=== PATIENT | female | born 1940 | race Caucasian/White ===

== ENCOUNTER → 2022-10-22 09:16 | Outpatient (CLI) | payer MEDICARE, SELFPAY ==
--- NOTE | 2022-10-22 | DI.ECHO.S_ITS ---
[facility]---------+ [facility] +---------+ : : [address] : : : : [id number] : : : : Phone: [phone]---------+ Echocardiogram Report + + :Name: EKTA ESPINOZA Study Date: 10/22/2022 Height: 66 in : :[facility] ReadingLocation: Weight: 155 lb : : Gender: Female BSA: 1.8 m2 : :: 1940 Age: 82 yrs BP: 114/70 mmHg: :Reason For Study: CHEST PAIN HR: 62 : :Ordering Physician: JEREMI, : :POP Performed By: LEOBARDO JOSEPH : :Referring: POP BLOOD : + + Interpretation Summary The left ventricle is normal in size and wall thickness. The ejection fraction is estimated to be 60-65%. The right ventricle is normal size. The right ventricular systolic function is normal. There is mild mitral regurgitation. There is mild aortic regurgitation. There is mild tricuspid regurgitation. The right ventricular systolic pressure is estimated to be at least 28 mmHg based on an estimated right atrial pressure of 3 mm Hg. Procedure: A two-dimensional transthoracic echocardiogram with color flow and Doppler was performed. The study quality was technically adequate. There is no prior echocardiogram noted for this patient. The patient was in normal sinus rhythm during the exam. Left Ventricle: The left ventricle is normal in size and wall thickness. There is no thrombus. A false chord is noted (normal variant). Left ventricular systolic function is normal. The ejection fraction is estimated to be 60-65%. There are no focal wall motion abnormalities. MV E/A: 1.1 Med Peak E' Jin: 7.4 cm/sec E/E' med: 15.3. Right Ventricle: The right ventricle is normal size. The right ventricular systolic function is normal. Atria: Both atria are normal in size. There is no Doppler evidence for an interatrial shunt. Mitral Valve: There is mild mitral annular calcification. There is mild mitral regurgitation. Aortic Valve: The aortic valve is trileaflet. The aortic valve opens well. There is no aortic valve stenosis. There is mild aortic regurgitation. Tricuspid Valve: The tricuspid valve is normal. There is mild tricuspid regurgitation. The right ventricular systolic pressure is estimated to be at least 28 mmHg based on an estimated right atrial pressure of 3 mm Hg. Pulmonic Valve: The pulmonic valve is not well visualized. There is no pulmonic valvular regurgitation. Great Vessels: The aortic root is normal size. The ascending aorta is normal in size. The IVC is of normal diameter and collapses greater than 50% with a sniff. This suggests a low right atrial pressure of 3 mm Hg. Pericardium/ Pleura There is an anterior echo-free space consistent with a fat pad. There is no pericardial effusion. There is no pleural effusion. MMode/2D Measurements & Calculations LVIDd: 4.3 cm LVOT diam: 1.9 cm LVIDs: 2.7 cm Ao root diam: 3.2 cm FS: 37.6 % IVSd: 0.75 cm LVPWd: 0.84 cm LV godinez. diameter/BSA (cm/m^2): 2.4 LV sys. diameter/BSA (cm/m^2): 1.5 LA A2 area: 12.6 cm2 RA long axis: 4.2 cm LA A4 area: 14.7 cm2 RA area: 12.4 cm2 LA length (vol): 4.3 cm RA vol: 31.2 ml LA vol: 37.0 ml RA : 17.4 ml/m2 LA vol index: 20.6 ml/m2 TAPSE: 2.1 cm Doppler Measurements & Calculations Ao V2 max: 143.7 cm/sec LVOT Max Jin: 140.8 cm/sec Ao V2 mean: 93.7 cm/sec LV V1 max P.9 mmHg Ao max P.3 mmHg LV V1 VTI: 32.8 cm Ao mean P.9 mmHg TRACEY(I,D): 2.8 cm2 Ao V2 VTI: 32.4 cm TRACEY(V,D): 2.7 cm2 sev ratio: 1.0 TRACEY indexed to BSA (cm^2/m^2): 1.5 AI P1/2t: 493.7 msec AI dec slope: 278.1 cm/sec2 MV E max jin: 112.7 cm/sec TR max jin: 251.8 cm/sec MV A max jin: 105.9 cm/sec TR max P.4 mmHg MV E/A: 1.1 PA V2 max: 67.8 cm/sec Med Peak E' Jin: 7.4 cm/sec PA V2 mean: 52.7 cm/sec E/E' med: 15.3 PA mean P.2 mmHg Lat Peak E' Jin: 5.7 cm/sec PA pr(Accel): 19.1 mmHg E/E' lat: 19.9 E/e' average: 17.6 MV dec time: 0.21 sec SV(LVOT): 90.1 ml Reading Physician:04:06 PM
== END ==
PROVIDERS: PCP Physician Assistant Medical; Referring Provider Physician Assistant Medical; Visit Provider Physician Assistant Medical
DX: R07.9 Chest pain, unspecified (principal); I08.3 Combined rheumatic disorders of mitral, aortic and tricuspid valves
CPT/HCPCS: 93306

== ENCOUNTER → 2022-10-27 10:56 | Outpatient (CLI) | payer MEDICARE, SELFPAY ==
--- NOTE | 2022-10-27 | DI.US.S_ITS ---
PROCEDURE: US ABD AORTA ANEURYSM SCREEN INDICATIONS: chest pain TECHNIQUE: Real time scanning was performed of the aorta and iliac arteries, with image documentation. COMPARISON: None. FINDINGS: Aorta: Proximal aortic diameter measures 2.1 cm. Mid-aorta measures 1.8 cm. Distal aortic diameter is 1.7 cm. Iliac arteries: Right common iliac artery measures 0.9 cm. Left common iliac artery measures 0.9 cm. IMPRESSION: Unremarkable abdominal aortic ultrasound without evidence of aneurysm Approved by: Reagan Darby M.D. on 10/27/2022 at 15:59
== END ==
PROVIDERS: PCP Physician Assistant Medical; Referring Provider Physician Assistant Medical; Visit Provider Physician Assistant Medical
DX: Z13.6 Encounter for screening for cardiovascular disorders; R07.9 Chest pain, unspecified
CPT/HCPCS: 76706

== ENCOUNTER → 2022-11-05 10:41 | Outpatient (CLI) | payer MEDICARE, SELFPAY ==
--- NOTE | 2022-11-05 20:54 | DI.NM.S_ITS ---
DATE OF SERVICE: 11/05/2022 PROCEDURE: Pharmacological perfusion study. INDICATIONS: Chest pain, shortness of breath, hyperlipidemia. RADIOPHARMACEUTICAL: 23.9 millicurie technetium-99m Myoview IV was injected at stress and 10.0 millicurie technetium-99m Myoview IV was injected at rest. CARDIAC STRESS: The patient underwent IV Lexiscan perfusion study under the supervision of an attending staff as per standard protocol. The patient remained hemodynamically stable. Resting blood pressure 120/70. Baseline rhythm sinus. During stress, no convincing ischemic changes seen. Some isolated PVCs seen. No complex arrhythmias. No chest pain. Had minimal dyspnea. RAW DATA: There is some breast shadow seen. Increased subdiaphragmatic activity. GATED STUDY: Resting LV ejection fraction 76% and stress LV ejection 97% without any obvious wall motion abnormalities. Resting end-diastolic volume 83 mL. TID ratio 0.64, which is within normal limits. Lung/heart ratio 0.26, which is within normal limits. MYOCARDIAL PERFUSION SCAN: Stress supine, resting supine and stress prone images were compared to each other. There is apical thinning. Otherwise, normal myocardial perfusion. No obvious ischemia or infarction pattern seen. Summed stress score is zero. CONCLUSION: I will call this study likely a normal myocardial perfusion study with some apical thinning. No convincing ischemia or infarction. Summed stress score zero. Resting left ventricular ejection fraction 76% and stress LV ejection fraction hyperdynamic 97%. No convincing ischemic EKG changes seen. Overall, low-risk myocardial perfusion scan. Jyothi Olivas - GLENYS/juan carlos/[facility] doc#: [id number]/job#: [id number] dd: 11/05/2022 17:04:00 dt: 11/05/2022 20:45:00 DICTATING MD/COPIES TO: Joseph Barrera MD COPIES MNE: LAMINE;
== END ==
PROVIDERS: PCP Physician Assistant Medical; Referring Provider Physician Assistant Medical; Visit Provider Physician Assistant Medical
DX: R07.9 Chest pain, unspecified (principal); R06.02 Shortness of breath; E78.5 Hyperlipidemia, unspecified
CPT/HCPCS: 78452; 93017; A9502; J2785

== ENCOUNTER → 2024-03-24 11:25 | Outpatient (CLI) | payer MEDICARE, SELFPAY ==
--- NOTE | 2024-03-24 11:27 | DI.CT.S_ITS ---
PROCEDURE: CT LUMBAR SPINE WO CON INDICATIONS: SPONDYLOLISTHESIS,LUMBAR REGION TECHNIQUE: Noncontrast 3 mm thick sections acquired from the T12 level to the sacrum. Sagittal and coronal reformats were constructed. For radiation dose reduction, the following was used: automated exposure control. COMPARISON: Outside Facility, RG, XR L-SPINE 2-3V, 12/15/2023, 12:08. Outside Facility, RG, MRI L-SPINE W/O CONTRAST, 12/24/2023, 15:59. FINDINGS: Image quality: Excellent. Bones: There is 8 mm grade 1 anterolisthesis of L4 on L5. No acute vertebral body compression fractures. No suspicious lytic or blastic bony lesions. No pars defects. T12-L1: No significant spinal canal stenosis or neural foraminal narrowing. L1-L2: Loss of disc space height with degenerative endplate changes and posterior disc-osteophyte complex as well as mild bilateral facet hypertrophy. Findings result in fhww-ua-urrrqtux narrowing of the spinal canal and mild to moderate narrowing of the bilateral neural foramina. L2-L3: Disc desiccation and loss of disc space height with circumferential disc bulging and moderate bilateral facet hypertrophy as well as buckling of the ligamentum flavum. Findings result in tqji-ct-dyzlmbxd narrowing of the spinal canal and mild bilateral neural foraminal narrowing. L3-L4: Loss of disc space height with circumferential disc bulging and moderate bilateral facet hypertrophy. Findings result in moderate narrowing of the spinal canal with moderate to severe left and moderate right neural foraminal narrowing. L4-L5: Grade 1 anterolisthesis with uncovering of the disc space and superimposed disc bulging as well as severe bilateral facet hypertrophy and buckling of the ligamentum flavum. Findings result in severe narrowing of the spinal canal and moderate to severe bilateral neural foraminal narrowing. L5-S1: Loss of disc space height with circumferential disc bulging and hcrv-sz-boipiauz bilateral facet hypertrophy. Findings result in moderate to severe narrowing of the bilateral neural foramina without significant spinal canal stenosis. Soft tissues: No retroperitoneal masses or hematomas. Visualized aorta is normal in caliber. Mild reticulations in the included lung bases. Soft tissue density partially visualized in the included left breast is likely a breast implant. IMPRESSION: 1. At L4-5, anterolisthesis and superimposed degenerative changes result in severe narrowing of the spinal canal as well as moderate to severe bilateral neural foraminal narrowing. 2. Additional multilevel degenerative disc disease and facet hypertrophy as described in detail in the body report. Findings do not appear significantly changed when compared to the MRI from 12/24/2023. Approved by: Frederic Mayo M.D. on 03/24/2024 at 14:15
== END ==
PROVIDERS: PCP Physician Assistant Medical; Referring Provider Physician Assistant; Visit Provider Physician Assistant
DX: M43.16 Spondylolisthesis, lumbar region (principal); M47.816 Spondylosis without myelopathy or radiculopathy, lumbar region; M47.817 Spondylosis without myelopathy or radiculopathy, lumbosacral region; M48.061 Spinal stenosis, lumbar region without neurogenic claudication; M48.07 Spinal stenosis, lumbosacral region; M51.36 Other intervertebral disc degeneration, lumbar region; M51.37 Other intervertebral disc degeneration, lumbosacral region
CPT/HCPCS: 72131

== ENCOUNTER 2024-03-28 11:48 | Inpatient (IN) | payer MEDICARE, SELFPAY ==
[2024-03-22 13:55] VITALS: BMI 26.6
[2024-03-28] VITALS (14 sets, daily range): BP systolic 155–201; BP diastolic 76–103; PULSE 71–90; RESP 12–20; TEMP 36–36.6; O2SAT 91–99; BMI 26.6
[2024-03-28] MEDS: LACTATED RINGERS 1,000 ML 42 ML IV ×2 (12:29→15:46)
--- NOTE | 2024-03-28 12:58 | PM.PREOP ---
Pre-operative Note Interval Note History & Physical reviewed/Exam performed by Physician: Yes Changes to H&P: No
[2024-03-28] MEDS: CEFAZOLIN 2 GM/100 ML PREMIX 100 ML IV ×2 (13:50→22:02)
--- NOTE | 2024-03-28 14:10 | SUR.OPER ---
Prone on spine table, head in foam head support, padded chest and pelvic supports, gel pad at knees, lower legs supported by pillows; nipples, genitalia and toes free of pressure, arms secured on foam padded arm boards at <90 degrees abduction. Tape over blanket at thigh secured to table.
[2024-03-28] MEDS: BUPIVACAINE LIPOSOME 266 MG/20 ML VIAL INJ (14:15)
[2024-03-28] MEDS: BUPIVACAINE 0.25% (PF) 60 ML, EPINEPHrine 0.15 MG INJ (14:15)
--- NOTE | 2024-03-28 16:04 | DI.RAD.S_ITS ---
PROCEDURE: XR LUMBAR SPINE 2V INDICATIONS: L4-5 TLIF TECHNIQUE: 2 views of the lumbar spine were acquired. COMPARISON: None. FINDINGS / IMPRESSION: Frontal and lateral fluoroscopic spot images are submitted. Postoperative changes with pedicle screws, posterior fixation rods, intervertebral metallic cage status post L4-5 TLIF are noted. Fluoroscopic dose values are not delineated. Dictated by: Ronn Vigil M.D. on 03/28/2024 at 16:52 Approved by: Ronn Vigil M.D. on 03/28/2024 at 16:54
--- NOTE | 2024-03-28 16:21 | PM.OP.1 ---
Operative Date/Time/Diagnoses Date of procedure: 03/28/24 Time of procedure: 14:00 Pre-op diagnosis: 1. L4-5 spondylolisthesis 2. L3-4, L4-5 spinal stenosis with neurogenic claudication Post-op diagnosis: same Procedure & Clinicians Procedure: 1. L4-5 Postero-lateral and posterior interbody fusion 2. L4-5 interbody cage placement. 3. L4-5 decompressive laminectomy with bilateral facetecomies 4. L4-5 Posterior non-segmental instrumentation 5. L3-4 hemilaminectomy 6. Stearns of bone marrow from iliac crest 7. Utilization of microsurgical technique and operating microscope Same procedure as scheduled: Yes Indications: Patient has been having chronic back pain and worsening lumbar radiculopathy and symptoms of neurogenic claudication. She has L4-5 spondylolisthesis along with spinal stenosis at L3-4 and L4-5 correlating with her symptoms. Patient failed multiple conservative management with worsening pain weakness and numbness in her lower extremity. Patient has been having difficulty performing activity of daily living. After discussing risks benefits of treatment options, patient elected proceed with surgery. Surgeon: Martir Vanegas Band Attacher: Amalia Gorman Click Yes if Unassisted: No Anesthesia Type: General Operative Notes Closure Type: primary Prosthetic devices, grafts, tissues, transplants, or devices: Globus CREO MIS screws, Rise cage Estimated Blood Loss (mL): 100 Blood products transfused: none Procedure in detail: Patient was seen in the preoperative area. Risks and benefits of the surgery was discussed with the patient. Informed consent was obtained from the patient and placed in the chart. Surgical site was marked. Patient was taken to the operative room. General anesthesia was administered. Prophylactic antibiotic was given to the patient less than 30 min before the incision was made. Patient was placed into a prone position on the Marciano table. Patient's back was then prepped and draped in the sterile fashion. Time-out was performed at this time. After patient was prepped and draped, patient's PSIS was palpated and marked bilaterally. Small 1 cm incision was made over the PSIS for placement of the reference probes. Two trocar was placed into the PSIS 1 on each side. The reference probe was attached to the trocar of the reference apparatus. At this time the C-arm imaging was used to confirm AP and lateral of L4-5 vertebrae and merged the C-arm imaging using the [employer] robotic navigation system with the CT of the lumbar spine. After successful merging was completed and confirmed, skin marker was used to tiffany out the skin incision using the [employer] robotic arm. Bilateral incision was made at this time. Pre templated trajectory was used and guided using the [employer] robotic navigation system for bilateral L4-5 pedicle screw placement. This was done by using the robotic arm to guide the high-speed bur to make a cortical entry point. Next a drill was placed also using the robotic arm and guided using the navigation system drilling partially through bilateral L4 and L5 pedicles. Next L4-5 pedicle screws it was pre templated and measured was placed onto the power lyft driver and inserted into the pedicles bilaterally. After all 4 screws were placed C-arm imaging was taken of both AP and lateral to confirm the placement. Excellent placement of the screws were confirmed and a matched precisely with the pre planned screw placement using the navigation system. MARs retractor was inserted using [employer] guidence. [employer] MARS retractors was placed inside the incision and docked onto the L4 lamina. Using microsurgical technique and operating microscope, a L4 laminectomy and L4-5 facetectomy was performed using a Kerrison rongeur. Patient was found have severe central stenosis, lateral recess and neural foramen stenosis which was fully decompressed after the laminectomy facetectomy. More than 75% of the facets were removed during the process of decompression rendering L4-5 level grossly unstable and required a fusion procedure at the same time. The disc space at L4-5 was identified, and a total diskectomy was performed at L4-5 level. The endplates were decorticated using a rasp and shaver. The total diskectomy and decortication was performed at L4-5 level in order to to accomplish a L4-5 fusion. The local bone from the laminectomy and facetectomy was saved for local bone grafting. After the total diskectomy and decortication was completed, Viacel bone graft material was combined with local bone that was harvested earlier. At this time, a separate skin is incision was made over the iliac crest. A Jamshidi needle was inserted into the iliac crest through a separate skin incision. 5 cc of bone marrow aspiration was obtained through the separate skin incision using a Jamshidi needle from the iliac crest. The bone marrow aspiration was combined with local bone and the Viacel bone grafting material. The bone grafting material was placed into the L4-5 interbody space along with a expandable cage. The cage was expanded to its maximum height using the torque limiting screwdriver. The disc preparation as well as the cage insertion were also performed under navigation guidance. After the cage was placed, AP and lateral C-arm imaging was taken to confirm placement of the cage and excellent position was confirmed. Globus MARs retractor was redirected over the L3-4 interval. Using microsurgical technique and operating microscope, a L3-4 hemilaminectomy was performed using a Kerrison rongeur to further decompress the central canal and lateral recess at L3-4 level. Globus MARS retractor was inserted and docked onto the L4-5 posterolateral gutter on the right side. Using the power drill, posterior-lateral decortication was performed at L4-5 level until bleeding cortical bone was identified. The remaining bone grafting material was placed into the L4-5 posterior lateral gutter he order to accomplish posterolateral fusion at the L4-5 level. At this time the tulips were attached to the L4-5 pedicle screw shanks. After measuring the length of the rods, they were inserted into the tulips of the pedicle screws and locked in place using locking caps and torque limiting screwdriver bilaterally. Total 4 caps and 2 titanium rods was used in order to complete the posterior instrumentation construct. After all the hardware was placed, and confirmed with AP and lateral C-arm imaging, the wound was then irrigated with sterile normal saline and packed with Ray-Antonio gauze for 3 min to accomplish hemostasis. After the gauze was removed the deep fascia was closed with #1 Vicryl suture. The subcutaneous layer was closed with 2-0 Vicryl. The skin was closed with skin alondra. Patient tolerated the procedure well. There were no complications. Neuro monitoring system was used to monitor patient's neurologic status throughout entire procedure. There was no disturbance of the neural monitoring signals throughout the case. The Operation could not have been safely performed without compromising the technical result or length of the procedure, without the assistance of a skilled surgical asst. The surgical asst was medically necessary for proper positioning, retraction and manipulation of instruments, proper exposure, surgical preparation, and manipulation of tissue. Complications: none Post-operative Condition: stable Disposition: PACU Plan for aftercare: Admit to inpatient hospital
--- NOTE | 2024-03-28 16:26 | SUR.PHASEI ---
pt has small skin tear to right side of cheek. I let Dali Wiley CRNA see it and she assessed the area.
--- NOTE | 2024-03-28 16:43 | SUR.PHASEI ---
Report given to Mallory CHAMBERS
[2024-03-28] MEDS: ACETAMINOPHEN IV 1,000 MG/100 ML VIAL 400 MG IV (16:53)
--- NOTE | 2024-03-28 18:33 | PC.NURSE ---
Patient admitted to room from pacu around 1725. She is sleepy but easily wakes up. She has not needed pain medication yet for her back discomfort. Patient was hypertensive in pacu and it went down. She is running 170s Systolic at this time. We will continue to monitor and notify . Patient is sleeping at this time.
[2024-03-28] MEDS: DOCUSATE 100 MG CAPSULE PO (20:10)
[2024-03-28] MEDS: CYCLOBENZAPRINE 10 MG TABLET 5 MG PO (20:10)
[2024-03-28] MEDS: SENNOSIDES 8.6 MG TABLET 17.2 MG PO (20:10)
[2024-03-28] MEDS: OXYCODONE IR 10 MG TABLET PO (20:10)
[2024-03-28] MEDS: HYDROMORPHONE 0.5 MG INJ IV (22:08)
[2024-03-29] VITALS (7 sets, daily range): BP systolic 106–175; BP diastolic 52–83; PULSE 64–93; RESP 12–24; TEMP 36.1–36.6; O2SAT 91–97
[2024-03-29] MEDS: LACTATED RINGERS 1,000 ML 125 ML IV (01:09)
[2024-03-29] MEDS: OXYCODONE IR 10 MG TABLET PO ×4 (01:21→22:42)
[2024-03-29] MEDS: HYDROMORPHONE 0.5 MG INJ IV ×3 (03:00→23:28)
[2024-03-29] MEDS: ONDANSETRON 4 MG/2 ML INJ IV ×2 (03:00→08:17)
[2024-03-29] MEDS: PANTOPRAZOLE DR 20 MG TABLET PO (06:14)
[2024-03-29] MEDS: LEVOTHYROXINE 75 MCG TABLET PO (06:14)
[2024-03-29] MEDS: CYCLOBENZAPRINE 10 MG TABLET 5 MG PO ×2 (08:15→18:44)
[2024-03-29] MEDS: GABAPENTIN 600 MG TABLET PO ×3 (08:15→18:43)
[2024-03-29] MEDS: DOCUSATE 100 MG CAPSULE PO ×2 (08:16→20:41)
[2024-03-29] MEDS: ESCITALOPRAM 10 MG TABLET 20 MG PO (08:16)
[2024-03-29] MEDS: CEFAZOLIN 2 GM/100 ML PREMIX 100 ML IV (08:17)
[2024-03-29] MEDS: SODIUM CHLORIDE 0.9% FLUSH 10 ML IV ×2 (08:18→20:42)
[2024-03-29] MEDS: ACETAMINOPHEN 325 MG TABLET 650 MG PO ×2 (08:19→18:43)
--- NOTE | 2024-03-29 09:50 | PT.IIE ---
Current Diagnoses Spondylolisthesis, lumbar region (03/28/24) Spinal stenosis, lumbar region with neurogenic claudication (03/28/24) Surgery Performed Operation Date: 03/28/24 13:45 Actual Procedures p L4-5 TLIF, L3-4 Hemilaminectomy - Robot - Martir Vanegas MD Surgical History (Last Reviewed 03/28/24 @ 12:25 by Gracie Garcia, RN) History of cataract removal with insertion of prosthetic lens History of D&C History of left knee replacement Status post appendectomy Status post arthroscopy Status post breast lumpectomy Status post surgery (04/04/16) Status post tonsillectomy and adenoidectomy Medical History (Last Reviewed 03/28/24 @ 12:25 by Gracie Garcia, RN) Ankle fracture Depression History of high cholesterol History of left breast cancer Hypothyroid Limb alert care status Sciatica Physical Therapy Inpatient Evaluation/Re-Eval M1 PT/OT-IP Prior Functional Status Start: 03/29/24 14:13 Freq: NEEDED Status: Active Protocol: Document 03/29/24 09:50 AB (Rec: 03/29/24 14:28 AB [id number]) Medical Review Prior Functional Status Medical History Reviewed Yes Communication pt is very sleepy; sister-in- law in room and provided pt's PLOF and home set up Mobility and Gait [id number] stated that pt was independent with all mobilities and ambulation without AD Social History Household Members none Living Arrangements House Number of Floors (Floors) Two Floors Number of Stairs To Enter/Railing? pt can stay on main level of the house: has 2 steps without rails down to living room but does not need to go down there has 2 steps to enter with bilateral wide rails and can only hold on to one rail at a time Home Environment Standard Height Toilet,Walk in Shower Home Equipment Front Wheel Walker,Straight Cane,Raised Toilet Seat w/ Armrests,Shower Seat without Backrest,Hand Held Shower,Grab Bars In Shower Additional Social History Comment pt has R side bed rail M2 PT-IP Current Condition Start: 03/29/24 14:13 Freq: NEEDED Status: Active Protocol: Document 03/29/24 09:50 AB (Rec: 03/29/24 14:28 AB [id number]) Physical Therapy Current Condition Current Condition Evaluation Date 03/29/24 Treatment Diagnosis s/p L4-5 TLIF, L3-4 hemilami; difficulty in walking Onset Date 03/28/24 M3 PT-IP Subjective Start: 03/29/24 14:13 Freq: NEEDED Status: Active Protocol: Document 03/29/24 09:50 AB (Rec: 03/29/24 14:28 AB [id number]) Subjective Physical Therapy Visit Type Type Initial Evaluation Visit Start Time 09:50 Visit Stop Time 10:45 Number of FOUNDRY MOLDER Visits 0 Physical Therapy Visit Comments Patient Comments agreeable to do PT Therapy Pain Assessment Pain When Pain Assessed During Mobility Pain Present Pain Present Pain Reported Location back Scale Used pain scale not stated M4 PT-IP Mobility and Gait Start: 03/29/24 14:13 Freq: NEEDED Status: Active Protocol: Document 03/29/24 09:50 AB (Rec: 03/29/24 14:28 AB [id number]) PT-Bed Mobility Assessment Rolling Type of Rolling Log Rolling Level of Assist Maximal Assistance Supine to Sit Supine to Sit Maximum Assistance,1 Person Assistance,Bedrails Scooting Scooting to Edge of Bed Maximum Assistance PT-Transfer Assessment Sit to and From Stand Sit to and from Stand Maximum Assistance,1 Person Assistance Equipment Transfer Assistive Device Gait Belt,Front Wheeled Walker Orthotic/Prosthetic Devices or Brace: No Transfers Transfer Destination Chair Transfer Technique ambulated Transfer Ability Level of Assist Maximum Assistance,1 Person Assistance,Use of Upper Extremities Comments Mobility Comments pt supine in bed and asleep. [id number] in room and provided pt's PLOF and home set up. woke pt up and agreed to do PT but requires max cues to stay awake. educated pt regarding back precautions and log roll. provided pt with post-op folder. BP supine: 104/55. completed supine to sit log roll max A and max cues. pt sat on EOB. mod A for sitting balance with increase posterior trunk lean requiring assist and max cues. completed sit to stand from EOB max A and max cues. Required 2 attempts to stand. pt ambulated to the chair using FWW mod to max A and max cues. pt agreed to sit up on the chair. positioned pt on the chair. call light and table placed within reach. informed pt and JED regarding SNF rehab and agreed. JED stated that she will only stay with pt for a few days and has to go back home due to work. also stated that it seems pt is requiring too much assistance right now and more than she can provide. Gait Assessment Gait Gait Assistance Required: Moderate Assistance,Maximum Assistance Distance (Feet) 12 Able to Maintain Weight Bearing Status Yes During Gait Assistive Devices Assistive Device Gait Belt,Front Wheeled Walker Orthotic/Prosthetic Devices or Brace: No Gait Deviations General Gait Pattern Ataxic,Decreased Stride Length ,Decreased Feet Clearance Factors Limiting Gait Function Factors Limiting Gait Function Decreased Activity Tolerance, Decreased Strength,Difficulty Following Directions,Limited Range of Motion,Pain,Poor Balance,Poor Safety Awareness PT-Balance Assessment Sitting Balance and Reactions Static Sitting Balance Ability Fair Dynamic Sitting Balance Ability Poor Standing Balance and Reactions Static Standing Balance Ability Poor Dynamic Standing Balance Ability Poor Device Used FWW M5 PT-IP Objective Assessments Start: 03/29/24 14:13 Freq: NEEDED Status: Active Protocol: Document 03/29/24 09:50 AB (Rec: 03/29/24 14:28 AB [id number]) Orientation Orientation/Cognition Level of Alertness Confusional State Orientation Name,Situation Language Function Ability Hard of Hearing Safety Awareness Decreased Safety Awareness Memory Description Short Term Impaired Gross Range of Motion Lower Extremity ROM Assessment Within Functional Limits Strength Lower Extremity Strength Assessment Bilaterally Impaired Hip 3-/5 Knee 3+/5 Sensation Assessment Sensation Gross Sensation WNL Muscle Tone Muscle Tone WNL Yes M6 PT-IP Treatment Start: 03/29/24 14:13 Freq: NEEDED Status: Active Protocol: Document 03/29/24 09:50 AB (Rec: 03/29/24 14:28 AB [id number]) Physical Therapy Treatment Education Education Provided Precautions,Weight Bearing Status,Post-Op Packet,Safety M7 PT-IP Assessment and Plan Start: 03/29/24 14:13 Freq: NEEDED Status: Active Protocol: Document 03/29/24 09:50 AB (Rec: 03/29/24 14:28 AB [id number]) PT Summary Assessment and Plan Potential Rehabilitation Potential Fair Status of Condition at Evaluation Evolving Summary Impairments Pain,ROM,Strength,Balance, Coordination,Sensation,Tone, Cognition,Bed Mobility, Transfers,Gait,Activity Tolerance Assessment Summary pt is an 83 y/o F s/p L4-5 TLIF, L3-4 hemilaminectomy POD 1. pt has back precautions. pt requiring max A and max cues with all mobilities at this time and will require SNF rehab to improve overall mobility and strength. pt's lnrphm-[id number]-oad plans to stay and assist pt but only for a few days. will continue to assess progress. Goals Bed Mobility Goal Minimal Assistance Transfer Goal Minimal Assistance,Front Wheeled Walker Gait Goal Minimal Assistance,Front Wheel Walker Gait Distance 100 Other Goals up/down 2 steps 1 rail SBA Days to Meet Goals 5 Frequency of Treatment Frequency Of Treatment Twice a Day Treatment Plan Physical Therapy Treatment Plan Bed Mobility Training,Transfer Training,Gait Training, Therapeutic Exercise,Balance Retraining,Post Op Education, Discharge Planning,Hot or Cold Pack,Neuromuscular Re-ed, Coordination Retraining,Manual Therapy Precautions Lumbar Precautions Log Roll,No Twisting,Limit Bending,Lifting Restriction of 10 lbs,Gait Belt above Incisional Area Recommendations To Nursing Amount of Assist Needed 1 Person Assist Discharge Recommendations PT Discharge Recommendations SNF Rehab Transportation Needs at Discharge Wheelchair/Cabulance
--- NOTE | 2024-03-29 10:41 | P.PN_ITS ---
Subjective Subjective Date Patient Seen: 03/29/24 Time Patient Seen: 07:15 Interval history: Patient states she is having difficulty with pain control. He has been taking more medications with little relief. She has been able to get up with physical therapy and ambulate with assistance to the restroom. She is able to urinate on her own. Denies any new numbness or tingling to lower extremities. She has had episodes of nausea and vomiting. Exam Vital Signs (past 8 hours): - 03/29/24 05:00 03/29/24 08:33 Temperature 97.8 F 96.9 F L Pulse Rate 64 89 Respiratory Rate 12 19 Blood Pressure 134/69 175/83 H Pulse Oximetry 93 97 Oxygen Flow Rate 1 0 Fraction of Inspired Oxygen 28 SaO2/FiO2 Ratio 335 Oxygen Delivery Method Nasal Cannula Oxygen Flow Rate 0 Narrative Exam Narrative: Patient found lying in bed on her right side. General pain is localized along the surgical site. Sensation intact to light touch throughout the lower extremities. Blood staining the left side bandage. 5/5 PF, DF, EHL on bilateral lower extremities. Sensation to light touch intact throughout BLE, calves soft and compressible. SCDs on and working Resp Effort & Inspection: normal respiratory effort and able to speak in complete sentences [facility] Medical History Limb alert care status History of high cholesterol History of left breast cancer Sciatica Depression Hypothyroid Ankle fracture Surgical History History of D&C History of left knee replacement Status post surgery (04/04/16) History of cataract removal with insertion of prosthetic lens Status post arthroscopy Status post breast lumpectomy Status post appendectomy Status post tonsillectomy and adenoidectomy Social History household members: none Smoking Status: Former smoker alcohol intake: current Assessment & Plan Post-op Postoperative Procedures: Procedures Operation Date: 03/28/24 13:45 Actual Procedure Side Surgeon p L4-5 TLIF, L3-4 Hemilaminectomy - Robot Martir Vanegas MD Postoperative day: 1 Postoperative status: marginal pain control Postoperative plan: routine post-op care Postoperative plan narrative: Change dressing Multimodal pain control. Ambulate with physical therapy. SCDs on when at rest. Re-evaluate tomorrow for possible discharge to home. Quality VTE Deep Vein Thrombosis/Pulmonary Embolism Present on Admission: No
--- NOTE | 2024-03-29 11:46 | CM.DANOTE ---
Initial DCP Assessment Visit Reviewed EMR and team rounds for status updates. Went to meet with pt at bedside to introduce self and role, however she was sound asleep at the time. Met with her [id number], Jason, at bedside to discuss what type of d/c disposition they are considering, as pt was not able to work with PT very well today. Pt lives modified independently in her own home in [place], she was a [id number] that is local, and a dtr that lives in [place]. Per Jason, they are leaning towards wanting SNF Rehab at time of d/c. [facility], unless pt is able to progressively improve prior to d/c, and then their preference will be home w/family assistance. Facility will transport unless she does end up going home. Payor: Medicare Attending: Dr. Vanegas Pt is a 83 year-old F post-op day 1 from a lumbar laminectomy surgery. Pt was sleeping at the time of this visit, however her pfaccu-sy-euf states that she was only barely able to work with PT today, and that family will not be able to care for her at home unless she is able to improve prior to d/c. This DIRECTOR OF INDUSTRIAL RELATIONS [facility] if pt continues to struggle with being limited in mobility and self-assist with transfers. Pt does have all of the DME at home should she improve and not need rehab. DCP will continue to follow and assist with final recommendations. Discharge Planning/Care Management CM Discharge Assessment Start: 03/29/24 11:22 Freq: Status: Active Protocol: Document 03/29/24 11:23 DPL (Rec: 03/29/24 11:46 DPL [id number]) Discharge Planning Assessment Assigned Beef Skinner JEANETTE Lepe Advance Directives? Yes Advance Directives on File No History Provided By Family Member,Medical Record Expected Length of Stay 3 Has Patient been admitted in last 30 No days? Prior Living Arrangements House Household Members none Type of transporation used prior to Drives own vehicle admit Independent with ADL's No: modified independent with a walker Is patient alert and oriented? Yes: Yes, although she was sleeping at the time of this visit. Caregiver for Another No Community Services used prior to Physical Therapy admission: DME Already Rented / Owned Bath Bench,Elevated Toilet Seat,FWW / Walker,Cane Patient/Family Preference Care Home Facility Barriers to Discharge No Discharge Plan Care Home Facility Community Services Physical Therapy,Occupational Therapy Transportation Arrangement Facility Referrals Initiated Care Home Additional Comment Pending PT eval and recommendations, however she was not able to work with therapies that well today, was max assist. Per family, will need SNF rehab at time of d/c. Inpatient Status as of 03/28/24 Medicare Choice List Provided Yes Medicare choice list reviewed on family electronic tablet with SNF/HH Preference [facility] Has Agency SNF been contacted No Comment Pending. Whiteboard Updated in Patient Room with Yes name and ext. # of Beef Skinner Review Status In Process Please Provide Date Initial DC 03/29/24 Assessment Was Performed Pre-Anesthesia Assessment Start: 03/22/24 13:55 Freq: Status: Active Protocol: Document 03/22/24 13:55 LB (Rec: 03/22/24 14:40 LB [id number]) Pre-Anesthesia Assessment Patient Information Reviewed Via Phone Assessment Assessment Completed With Patient Diagnostic Results BMP/CMP,CBC,EKG Comment outside labs from scanned in Primary Care Provider Penelope Sheth Medical Clearance Received Not Applicable Seen Specialist in Last 12 Months Yes Specialist Seen Orthopedist Primary Language Kiswahili Preferred Language Kiswahili Entry Specialist Required No Height 167.64 cm Weight 74.843 kg Body Mass Index (BMI) 26.6 Hearing Ability Normal Visual Assist None Dentition Type Teeth, Natural Present Barriers to Learning None Other Aids No Hx Anesthesia Reactions No Hx Family Anesthesia Reaction No Hx Malignant Hyperthermia No Hx Blood Transfusions No Anesthesia Review Requested No Lithograph Press Operator Tinware No alcohol intake current alcohol intake frequency a few times a week Smoking Status Former smoker how long ago did patient quit smoking as a teenager. Substance Use Type does not use Pain Present Denied Pain Musculoskeletal Symptoms Back Pain,Muscle Cramps, Radiating Pain into Limb, Tingling History of Falling (Recent or History of No ) Patient is completely paralyzed or No completely immobile Mental Status Oriented to own ability Is patient on oxygen? No Does patient have GALLEGOS/SOB No Hx Sleep Apnea No CPAP/BIPAP use not prescribed Currently Taking a Beta Kapil No Can You Climb a Flight of Stairs Without Yes SOB Hx Chest Pain No Hx SOB No Hx Syncope or Dizziness No Anti-Coagulant Therapy No Has a Catering Assistant No Cardiac Testing Yes: EKG 11/07/23 scanned in. Hx Pacemaker/ICD No Cardiac Clearance Received Not Applicable Dysphagia No Gastrointestinal Symptoms Constipation,Reflux Urinary Catheter Present No Hx Urinary Self Catheterization No Diabetes No Patient No Lactating No Hx Drug Resistant Organism No Presence of External or Internal Medical Yes: left knee, left breast Devices saline Have you had any close contact with No someone diagnosed with COVID-19? Are you experiencing any of these No symptoms symptoms? Marital Status / Lives With none Current Living Arrangements House Number of Floors (Floors) One Floor Number of Stairs To Enter/Railing? 2 stairs with railing. Support System Family Does the Patient Have Assistance After Yes Surgery Patient Discharge Plan Description Return Home Additional comment advised overnight length of stay per surgeon. Feels Safe in Current Environment Yes Do you have a plan to hurt yourself or No Plan others? Do You Have Any Spiritual Beliefs That No May Affect Your HC Choices? Do You Have Any Cultural Practices That No May Affect Your HC Choices? Who Can We Speak to About Patient's Care family/friends Identifying Code for Release of Patient declines to answer Information Health Care Proxy/Next of Kin Jasmina Jorge - daughter Health Care Proxy Emergency Contact Name Hesham Herrera - son Joan Medeiros - sister-in- law Emergency Contact [phone] Advance Directives? Yes Advance Directives on File No Requested Patient Bring Advanced Yes Directives DOS Power of Paving Supervisor Yes Power of Paving Supervisor Name Jasmina Jorge - daughter Power of Paving Supervisor PAC Instructions Durable medical equipment, Medications to take/avoid,No ETOH/petroleum product on skin DOS,NPO,Post-op transportation,Pre-surgical wash,Sensory aids,Sturdy shoes /comfortable clothes,Do not bring valuables and remove jewelry
[2024-03-29] MEDS: OXYCODONE IR 5 MG TABLET PO (13:42)
--- NOTE | 2024-03-29 13:42 | PT.IPTN ---
Current Diagnoses Spondylolisthesis, lumbar region (03/28/24) Spinal stenosis, lumbar region with neurogenic claudication (03/28/24) Surgery Performed Operation Date: 03/28/24 13:45 Actual Procedures p L4-5 TLIF, L3-4 Hemilaminectomy - Robot - Martir Vanegas MD Physical Therapy Treatment Note M2 PT-IP Current Condition Start: 03/29/24 14:13 Freq: NEEDED Status: Active Protocol: Document 03/29/24 09:50 AB (Rec: 03/29/24 14:28 AB [id number]) Physical Therapy Current Condition Current Condition Evaluation Date 03/29/24 Treatment Diagnosis s/p L4-5 TLIF, L3-4 hemilami; difficulty in walking Onset Date 03/28/24 M3 PT-IP Subjective Start: 03/29/24 14:13 Freq: NEEDED Status: Active Protocol: Document 03/29/24 13:42 AB (Rec: 03/29/24 14:35 AB [id number]) Subjective Physical Therapy Visit Type Type Treatment Note Visit Start Time 13:42 Visit Stop Time 14:00 Number of SR. VENDOR MANAGEMENT ASSOCIATE Visits 0 Physical Therapy Visit Comments Patient Comments requesting to go back to bed Therapy Pain Assessment Pain When Pain Assessed During Mobility Pain Present Pain Present Pain Reported Location back Scale Used c/o increase pain but pain scale not stated Pain Management Techniques Distraction,Modification of Treatment,Re-positioning, Timing of Activity with Medications M4 PT-IP Mobility and Gait Start: 03/29/24 14:13 Freq: NEEDED Status: Active Protocol: Document 03/29/24 13:42 AB (Rec: 03/29/24 14:35 AB [id number]) PT-Bed Mobility Assessment Rolling Type of Rolling Log Rolling Level of Assist Maximal Assistance Sit to Supine Sit to Supine Maximum Assistance,1 Person Assistance,2 Person Assistance ,Head of Bed Elevated PT-Transfer Assessment Sit to and From Stand Sit to and from Stand Maximum Assistance,1 Person Assistance,Use of Upper Extremities Equipment Transfer Assistive Device Gait Belt,Front Wheeled Walker Orthotic/Prosthetic Devices or Brace: No Transfers Transfer Destination Bed Transfer Technique ambulated Transfer Ability Level of Assist Maximum Assistance,1 Person Assistance,Use of Upper Extremities Comments Mobility Comments pt sitting on the chair. requesting to do PT but agreed to ambulate first. completed sit to stand max A and max cues and ambulated in room using FWW ~ 45 ft initially requiring mod A but max A needed midway with ambulation. presents with unsteady gait with increase posterior trunk leaning. pt sat on EOB. completed log roll sit to supine max a x 1-2 and max cues. positioned pt in bed. call light and table placed within reach. Gait Assessment Gait Gait Assistance Required: Moderate Assistance,Maximum Assistance Distance (Feet) 45 Able to Maintain Weight Bearing Status Yes During Gait Assistive Devices Assistive Device Gait Belt,Front Wheeled Walker Orthotic/Prosthetic Devices or Brace: No Gait Deviations General Gait Pattern Ataxic,Decreased Stride Length ,Decreased Feet Clearance Factors Limiting Gait Function Factors Limiting Gait Function Decreased Activity Tolerance, Decreased Strength,Difficulty Following Directions,Limited Range of Motion,Pain,Poor Balance,Poor Safety Awareness M5 PT-IP Objective Assessments Start: 03/29/24 14:13 Freq: NEEDED Status: Active Protocol: Document 03/29/24 09:50 AB (Rec: 03/29/24 14:28 AB [id number]) Orientation Orientation/Cognition Level of Alertness Confusional State Orientation Name,Situation Language Function Ability Hard of Hearing Safety Awareness Decreased Safety Awareness Memory Description Short Term Impaired Gross Range of Motion Lower Extremity ROM Assessment Within Functional Limits Strength Lower Extremity Strength Assessment Bilaterally Impaired Hip 3-/5 Knee 3+/5 Sensation Assessment Sensation Gross Sensation WNL Muscle Tone Muscle Tone WNL Yes M6 PT-IP Treatment Start: 03/29/24 14:13 Freq: NEEDED Status: Active Protocol: Document 03/29/24 13:42 AB (Rec: 03/29/24 14:35 AB [id number]) Physical Therapy Treatment Education Education Provided Precautions,Safety M7 PT-IP Assessment and Plan Start: 03/29/24 14:13 Freq: NEEDED Status: Active Protocol: Document 03/29/24 13:42 AB (Rec: 03/29/24 14:35 AB [id number]) PT Summary Assessment and Plan Potential Rehabilitation Potential Fair Summary Impairments Pain,ROM,Strength,Balance, Coordination,Sensation,Tone, Cognition,Bed Mobility, Transfers,Gait,Activity Tolerance Progress Towards Goals Slow Progress due to Pain,Slow Progress due to Activity Tolerance,Slow Progress - Other Assessment Summary pt requiring max A x 1-2 for bed mobility and max A for transfers using FWW. pt will require SNF rehab to improve mobility. will continue to assess. Goals Bed Mobility Goal Minimal Assistance Transfer Goal Minimal Assistance,Front Wheeled Walker Gait Goal Minimal Assistance,Front Wheel Walker Gait Distance 100 Other Goals up/down 2 steps 1 rail SBA Days to Meet Goals 5 Frequency of Treatment Frequency Of Treatment Twice a Day Treatment Plan Physical Therapy Treatment Plan Bed Mobility Training,Transfer Training,Gait Training, Therapeutic Exercise,Balance Retraining,Post Op Education, Discharge Planning,Hot or Cold Pack,Neuromuscular Re-ed, Coordination Retraining,Manual Therapy Precautions Lumbar Precautions Log Roll,No Twisting,Limit Bending,Lifting Restriction of 10 lbs,Gait Belt above Incisional Area Recommendations To Nursing Amount of Assist Needed 1 Person Assist Discharge Recommendations PT Discharge Recommendations SNF Rehab Transportation Needs at Discharge Wheelchair/Cabulance
--- NOTE | 2024-03-29 14:05 | OT.IP.EVAL ---
Current Diagnoses Spondylolisthesis, lumbar region (03/28/24) Spinal stenosis, lumbar region with neurogenic claudication (03/28/24) Surgery Performed Operation Date: 03/28/24 13:45 Actual Procedures p L4-5 TLIF, L3-4 Hemilaminectomy - Robot - Martir Vanegas MD Past Medical History (Last Reviewed 03/28/24 @ 12:25 by Gracie Garcia, RN) Ankle fracture Depression History of high cholesterol History of left breast cancer Hypothyroid Limb alert care status Sciatica Surgical History (Last Reviewed 03/28/24 @ 12:25 by Gracie Garcia, RN) History of cataract removal with insertion of prosthetic lens History of D&C History of left knee replacement Status post appendectomy Status post arthroscopy Status post breast lumpectomy Status post surgery (04/04/16) Status post tonsillectomy and adenoidectomy Occupational Therapy Inpatient Evaluation/Re-Eval M2 OT-IP Current Condition Start: 03/29/24 14:07 Freq: Status: Active Protocol: Document 03/29/24 14:11 [facility] (Rec: 03/29/24 14:24 [facility] [id number]) Occupational Therapy Current Condition Current Condition Evaluation Date 03/29/24 Treatment Diagnosis S/P L4-5 TLIF, L3-4 hemilaminectomy Diagnosis Onset Date 03/28/24 Post Operative Precautions Lumbar Precautions Log Roll,No Twisting,Limit Bending,Lifting Restriction of 10 lbs,Gait Belt above Incisional Area M3 OT- IP Subjective and Pain Start: 03/29/24 14:07 Freq: Status: Active Protocol: Document 03/29/24 14:11 [facility] (Rec: 03/29/24 14:24 [facility] [id number]) OT- Subjective Occupational Therapy Visit Type Type Initial Evaluation Visit Start Time 13:30 Visit Stop Time 14:05 Occupational Therapy Visit Comments Patient Comments Pt wanting to get back to bed. Pt very drowsy and groggy. Patient/Caregiver Goals TO go home. OT Pain Assessment Pain When Pain Assessed At Rest Pain Present Pain Present Pain Reported Location back Intensity 8 Scale Used Numeric (0 - 10) M4 OT- IP ADL's Start: 03/29/24 14:07 Freq: Status: Active Protocol: Document 03/29/24 14:11 [facility] (Rec: 03/29/24 14:24 [facility] [id number]) OT YAH-Pesg-Mouiefd Comments OT Self-Feeding Comments Pt not hungry and just been drinking shakes. OT ADL-Grooming Comments OT Grooming Comments Pt able to wash her face after set-up. OT ADL-Oral Care Comments Oral Care Comments Not performed. OT ADL-Dressing General Eval Lower Body Dressing Ability Maximum Assistance Areas Needing Assistance Socks Comments OT Dressing Comments Able to practice LB dressing equipment for socks. Pt will benefit from getting some. OT ADL-Toileting Comments OT Toileting Comments Pt not having to go at this time. Pt would benefit from a BSC. Educated best to stand to wipe or use of toilet paper aid. OT ADL-Bathing Comments OT Bathing Comments Not performed. Educcated to cover the dressing from getting wet for showering needs. M5 OT- IP IADL's Start: 03/29/24 14:07 Freq: Status: Active Protocol: Document 03/29/24 14:11 [facility] (Rec: 03/29/24 14:24 [facility] [id number]) OT-Instrumental Activities of Daily Living Deficits IADL Deficits Identified Deficits Home Safety Awareness Awareness of Need for Assistance at Home Good Awareness Home Safety Comments Pt very groggy and drowsy at this time. Medication Management Medication Management Comments At this time pt would need assist. Money Management Money Management Comments At this time pt would need assist. Meal Preparation Meal Preparation Comments At this time pt would need assist. Glass Mechanic Glass Mechanic Comments At this time pt would need assist. M6 OT- IP Functional Cognition Start: 03/29/24 14:07 Freq: Status: Active Protocol: Document 03/29/24 14:11 [facility] (Rec: 03/29/24 14:24 [facility] [id number]) Cognitive Factors Limiting Selfcare Function Cognitive Ability Level of Alertness Drowsy Patient Orientation Name,Place,Situation Attention Span Ability Capable of Focused Attention, Unable to Sustain Attention Ability to Follow Commands Able to Follow One Step Commands with Increased Time, Able to Follow One Step Commands with Repetition Cognitive Comments Cognitive Assessment Comments Pt still very groggy and sleepy from pain medications earlier. Pt needing cues to recall and follow her back precautions at this time. Pt needing vc for safety for FWW use and transitions. OT- Vision and Hearing OT- Hearing Assessment OT- Hearing Assessment WFL OT- Vision Assessment Visual Acuity WFL Visual Attentiveness WFL Occular Pursuits WFL M7 OT- IP Mobility and Balance Start: 03/29/24 14:07 Freq: Status: Active Protocol: Document 03/29/24 14:11 [facility] (Rec: 03/29/24 14:24 [facility] [id number]) OT- Bed Mobility Assessment Sit to Supine Sit to Supine Assist Maximum Assistance,Bedrails OT-Transfer Assessment Sit to and From Stand Sit to and from Stand Maximum Assistance Transfers Transfer Ability Maximum Assistance Technique Transfer Destination Bed,Chair Transfer Technique Stand Step Pivot Devices Transfer Assistive Devices Gait Belt,Front Wheeled Walker Comments Mobility Comments MAXA X 1 to stand and assist to balance as pt tends to lean posteriorly. Assist to her trunk and legs back into bed. OT- Balance Assessment Sitting Balance and Reactions Static Sitting Balance Ability Fair Dynamic Sitting Balance Ability Fair Standing Balance and Reactions Static Standing Balance Ability Poor Dynamic Standing Balance Ability Poor M8 OT- IP Objective Assessments Start: 03/29/24 14:07 Freq: Status: Active Protocol: Document 03/29/24 14:11 [facility] (Rec: 03/29/24 14:24 [facility] [id number]) OT Gross Range of Motion Upper Extremity Range of Motion Assessment Within Functional Limits OT Strength Upper Extremity Strength Assessment Within Functional Limits Comments Strength Comments WFL for mobility needs. M9 OT- IP Assessment and Plan Start: 03/29/24 14:07 Freq: Status: Active Protocol: Document 03/29/24 14:11 [facility] (Rec: 03/29/24 14:24 [facility] [id number]) OT Summary Assessment and Plan Potential Rehabilitation Potential Good Analytic Complexity at Evaluation Low Summary OT Impairments Pain,Strength,Balance, Functional Cognition, Functional Mobility,Grooming, Dressing,Toileting,Bathing, Toilet Transfers,Shower Transfers,Activity Tolerance Progress Towards Goals Slow Progress due to Pain,Slow Progress due to Medical Issues,Slow Progress due to Activity Tolerance Assessment Summary Pt low complexity and main barriers are pain, groggy and sleepy and having difficulty to follow commands. At this time pt needing MAXA for ADL and mobility needs and would benefit from skilled rehab prior to going home. Goals Self-Feeding Goal Independent Grooming Goal Independent Dressing Goal Independent,Long Handled Shoe Horn,Livestock Brands Inspector,Sock Aid Toileting Goal Independent,Toilet Paper Aid Bathing Goal Minimal Assistance Toilet Transfer Goal Independent Shower Transfer Goal Standby Assistance Days to Meet Goals 20 Frequency of Treatment Other frequency 5x/week Treatment Plan OT Treatment Plan ADL Training,Functional Cognition Training,Functional Mobility,Patient/Family Education,Discharge Planning Other Treatment Recommendations and Next Standing ADL's at the sink Treatment Focus with FWW- MODA Discharge Recommendations OT Discharge Recommendations SNF Rehab Transportation Needs at Discharge Wheelchair/Cabulance
[2024-03-29] MEDS: TRAMADOL 50 MG TABLET PO (18:43)
[2024-03-29] MEDS: SENNOSIDES 8.6 MG TABLET 17.2 MG PO (20:41)
[2024-03-29] MEDS: ATORVASTATIN 20 MG TABLET PO (20:41)
[2024-03-30] MEDS: OXYCODONE IR 10 MG TABLET PO ×2 (02:44→07:41)
[2024-03-30] MEDS: LEVOTHYROXINE 75 MCG TABLET PO (05:55)
[2024-03-30] MEDS: PANTOPRAZOLE DR 20 MG TABLET PO (05:55)
--- NOTE | 2024-03-30 07:21 | PM.PNPO.1 ---
Subjective Subjective Date Patient Seen: 03/30/24 Time Patient Seen: 07:21 Interval history: Pt lying in bed. Says she is more comfortable today, but has not done much with PT other than go from bed to chair or commode d/t pain in legs. C/o severe pain radiating down both legs. She would like to go home if her mobility improves. Exam Vital Signs (past 8 hours): Fraction of Inspired Oxygen 28 SaO2/FiO2 Ratio 332 Oxygen Delivery Method Nasal Cannula Oxygen Flow Rate 2 Narrative Exam Narrative: 5/5 strength in hip flexors, quadriceps, hamstrings, DF, PF, EHL bilaterally. Sensation to light touch intact in BLE. Calves soft and compressible. SCDs in place. Dressing placed intraoperatively w/ bloody drainage bilaterally. [facility] Medical History Limb alert care status History of high cholesterol History of left breast cancer Sciatica Depression Hypothyroid Ankle fracture Surgical History (Updated 03/30/24 @ 07:23 by Amalia Gorman PA-C) History of D&C History of left knee replacement Status post surgery (04/04/16) History of cataract removal with insertion of prosthetic lens Status post arthroscopy Status post breast lumpectomy Status post appendectomy Status post tonsillectomy and adenoidectomy Social History household members: none Smoking Status: Former smoker alcohol intake: current Assessment & Plan Post-op Assessment and plan (1) S/P lumbar fusion: Assessment and Plan narrative: 1) Will start dexamethasone QID to help w/ leg pain. If this is beneficial, pt should d/c home on Medrol Roman. 2) Continue PT. Hope to go home w/ family tomorrow if better mobilization. Otherwise, she will require SNF placement. 3) Dressing change. 4) Continue SCDs for mechanical VTE prophylaxis. Postoperative Procedures: Procedures Operation Date: 03/28/24 13:45 Actual Procedure Side Surgeon p L4-5 TLIF, L3-4 Hemilaminectomy - Robot Martir Vanegas MD Postoperative day: 2 Quality VTE Deep Vein Thrombosis/Pulmonary Embolism Present on Admission: No
[2024-03-30] MEDS: ACETAMINOPHEN 325 MG TABLET 650 MG PO ×2 (07:40→18:02)
[2024-03-30] MEDS: DEXAMETHASONE 4 MG/ML VIAL IV ×3 (07:41→18:02)
[2024-03-30] MEDS: GABAPENTIN 600 MG TABLET PO ×2 (07:41→20:35)
[2024-03-30] MEDS: DOCUSATE 100 MG CAPSULE PO ×2 (07:41→20:36)
[2024-03-30] MEDS: ESCITALOPRAM 10 MG TABLET 20 MG PO (07:41)
[2024-03-30] MEDS: SODIUM CHLORIDE 0.9% FLUSH 10 ML IV ×2 (07:42→20:37)
[2024-03-30] MEDS: ONDANSETRON 4 MG/2 ML INJ IV (07:42)
[2024-03-30] MEDS: CYCLOBENZAPRINE 10 MG TABLET 5 MG PO (07:43)
[2024-03-30 07:50] VITALS: O2SAT 96
--- NOTE | 2024-03-30 08:30 | PT.IPTN ---
Current Diagnoses Spondylolisthesis, lumbar region (03/28/24) Spinal stenosis, lumbar region with neurogenic claudication (03/28/24) Arthrodesis status (03/28/24) Surgery Performed Operation Date: 03/28/24 13:45 Actual Procedures p L4-5 TLIF, L3-4 Hemilaminectomy - Robot - Martir Vanegas MD Physical Therapy Treatment Note M2 PT-IP Current Condition Start: 03/29/24 14:13 Freq: NEEDED Status: Active Protocol: Document 03/29/24 09:50 AB (Rec: 03/29/24 14:28 AB [id number]) Physical Therapy Current Condition Current Condition Evaluation Date 03/29/24 Treatment Diagnosis s/p L4-5 TLIF, L3-4 hemilami; difficulty in walking Onset Date 03/28/24 M3 PT-IP Subjective Start: 03/29/24 14:13 Freq: NEEDED Status: Active Protocol: Document 03/30/24 10:10 TS (Rec: 03/30/24 10:21 TS [id number]) Subjective Physical Therapy Visit Type Type Treatment Note Visit Start Time 08:30 Visit Stop Time 08:53 Number of STAVE MACHINE TENDER Visits 1 Physical Therapy Visit Comments Patient Comments Pt's JED reports pt is hallucinating and is having high amounts of pain. Checked on pt and she was agreeable to PT. Therapy Pain Assessment Pain When Pain Assessed During Mobility Pain Present Pain Present Pain Reported M4 PT-IP Mobility and Gait Start: 03/29/24 14:13 Freq: NEEDED Status: Active Protocol: Document 03/30/24 10:10 TS (Rec: 03/30/24 10:21 TS [id number]) PT-Bed Mobility Assessment Sit to Supine Sit to Supine Maximum Assistance,1 Person Assistance,Head of Bed Elevated Scooting Scooting Up and Down in Bed Maximum Assistance PT-Transfer Assessment Sit to and From Stand Sit to and from Stand Maximum Assistance,1 Person Assistance,Use of Upper Extremities Equipment Transfer Assistive Device Gait Belt,Front Wheeled Walker Orthotic/Prosthetic Devices or Brace: No Comments Mobility Comments Pt scoots in chair, has poor sitting balance and difficulty following instructions. STS with FWW MaxA x1, pt requires repated cues for pushing from arms of chair. She stood with poor balance and max cues for use of FWW. She ambulated ~2' in the room with poor balance. She sidesteps to HOB x6 steps . Sit to supine into bed MaxA x1. Pt was left in bed, all needs met. Gait Assessment Gait Gait Assistance Required: Maximum Assistance,1 Person Assist Distance (Feet) 3 Able to Maintain Weight Bearing Status Yes During Gait Assistive Devices Assistive Device Gait Belt,Front Wheeled Walker Orthotic/Prosthetic Devices or Brace: No Gait Deviations General Gait Pattern Ataxic,Decreased Stride Length ,Decreased Feet Clearance Factors Limiting Gait Function Factors Limiting Gait Function Decreased Activity Tolerance, Decreased Strength,Difficulty Following Directions,Limited Range of Motion,Pain,Poor Balance,Poor Safety Awareness PT-Balance Assessment Sitting Balance and Reactions Static Sitting Balance Ability Poor Dynamic Sitting Balance Ability Poor Standing Balance and Reactions Static Standing Balance Ability Poor Dynamic Standing Balance Ability Poor Device Used FWW M5 PT-IP Objective Assessments Start: 03/29/24 14:13 Freq: NEEDED Status: Active Protocol: Document 03/29/24 09:50 AB (Rec: 03/29/24 14:28 AB [id number]) Orientation Orientation/Cognition Level of Alertness Confusional State Orientation Name,Situation Language Function Ability Hard of Hearing Safety Awareness Decreased Safety Awareness Memory Description Short Term Impaired Gross Range of Motion Lower Extremity ROM Assessment Within Functional Limits Strength Lower Extremity Strength Assessment Bilaterally Impaired Hip 3-/5 Knee 3+/5 Sensation Assessment Sensation Gross Sensation WNL Muscle Tone Muscle Tone WNL Yes M6 PT-IP Treatment Start: 03/29/24 14:13 Freq: NEEDED Status: Active Protocol: Document 03/30/24 10:10 TS (Rec: 03/30/24 10:21 TS [id number]) Physical Therapy Treatment Education Education Provided Precautions,Safety M7 PT-IP Assessment and Plan Start: 03/29/24 14:13 Freq: NEEDED Status: Active Protocol: Document 03/30/24 10:10 TS (Rec: 03/30/24 10:21 TS [id number]) PT Summary Assessment and Plan Potential Rehabilitation Potential Fair Summary Impairments Pain,ROM,Strength,Balance, Coordination,Sensation,Tone, Cognition,Bed Mobility, Transfers,Gait,Activity Tolerance Progress Towards Goals Slow Progress due to Pain,Slow Progress due to Activity Tolerance,Slow Progress - Other Assessment Summary Jyothi continues to make slow progress with her mobility. She requires MaxA for STS's and for ambulation. She has poor balance in sitting and standing. She has diffiuclty following instructions and has some confusion. PT continues to recommend SNF. Goals Bed Mobility Goal Minimal Assistance Transfer Goal Minimal Assistance,Front Wheeled Walker Gait Goal Minimal Assistance,Front Wheel Walker Gait Distance 100 Other Goals up/down 2 steps 1 rail SBA Days to Meet Goals 5 Frequency of Treatment Frequency Of Treatment Twice a Day Treatment Plan Physical Therapy Treatment Plan Bed Mobility Training,Transfer Training,Gait Training, Therapeutic Exercise,Balance Retraining,Post Op Education, Discharge Planning,Hot or Cold Pack,Neuromuscular Re-ed, Coordination Retraining,Manual Therapy Precautions Lumbar Precautions Log Roll,No Twisting,Limit Bending,Lifting Restriction of 10 lbs,Gait Belt above Incisional Area Recommendations To Nursing Amount of Assist Needed 1 Person Assist Discharge Recommendations PT Discharge Recommendations SNF Rehab Transportation Needs at Discharge Wheelchair/Cabulance
--- NOTE | 2024-03-30 10:57 | CM.DPC ---
DCP Cont. Reviewed EMR and team rounds for status updates. Sent referral to [facility], who can accept for tomorrow 03/30. Will confirm transport time once [facility] has secured it. Updated pt.
--- NOTE | 2024-03-30 13:15 | PT.IPTN ---
Current Diagnoses Spondylolisthesis, lumbar region (03/28/24) Spinal stenosis, lumbar region with neurogenic claudication (03/28/24) Arthrodesis status (03/28/24) Surgery Performed Operation Date: 03/28/24 13:45 Actual Procedures p L4-5 TLIF, L3-4 Hemilaminectomy - Robot - Martir Vanegas MD Physical Therapy Treatment Note M2 PT-IP Current Condition Start: 03/29/24 14:13 Freq: NEEDED Status: Active Protocol: Document 03/29/24 09:50 AB (Rec: 03/29/24 14:28 AB [id number]) Physical Therapy Current Condition Current Condition Evaluation Date 03/29/24 Treatment Diagnosis s/p L4-5 TLIF, L3-4 hemilami; difficulty in walking Onset Date 03/28/24 M3 PT-IP Subjective Start: 03/29/24 14:13 Freq: NEEDED Status: Active Protocol: Document 03/30/24 13:15 AB (Rec: 03/30/24 14:53 AB [id number]) Subjective Physical Therapy Visit Type Type Treatment Note Visit Start Time 13:15 Visit Stop Time 13:55 Number of SLOT SUPERVISOR Visits 0 Therapy Pain Assessment Pain When Pain Assessed During Mobility Pain Present Pain Present Pain Reported Location back Scale Used some pain with movement but pain scale not stated M4 PT-IP Mobility and Gait Start: 03/29/24 14:13 Freq: NEEDED Status: Active Protocol: Document 03/30/24 13:15 AB (Rec: 03/30/24 14:53 AB [id number]) PT-Bed Mobility Assessment Rolling Level of Assist Maximal Assistance Supine to Sit Supine to Sit Maximum Assistance,1 Person Assistance,Bedrails PT-Transfer Assessment Sit to and From Stand Sit to and from Stand Maximum Assistance,1 Person Assistance,Use of Upper Extremities Equipment Transfer Assistive Device Gait Belt,Front Wheeled Walker Orthotic/Prosthetic Devices or Brace: No Transfers Transfer Destination Toilet Transfer Technique ambulatedd Transfer Ability Level of Assist Moderate Assistance,Maximum Assistance,1 Person Assistance ,Use of Upper Extremities Comments Mobility Comments pt supine in bed and asleep. woke pt up and agreed to get up. pt requested to use the toilet. pt still sleepy and has difficulty following directions. pt also gets distracted easily. completed log roll supine to sit max A and max cues. sat on EOB min A and cues to decrease posterior trunk leaning. sit to stand max A and cues and ambulated to the toilet using FWW mod to max A and cues. (+ ) B knees slight buckling requiring max A for steadiness and max cues for quads activation. max A for controlled descent to the toilet using grab bar. pt completed sit to stand from the toilet max A and cues and use of grab bar. max A for standing balance using FWW for support while NAC assisted with hygiene care. continues to have B knee buckling requiring max A and max cues for safety. pt was able to take steps to get to the chair ~ 3 ft using FWW max A and cues. positioned pt on the chair. call light and table placed within reach. Gait Assessment Gait Gait Assistance Required: Moderate Assistance,Maximum Assistance Distance (Feet) 12 Able to Maintain Weight Bearing Status Yes During Gait Assistive Devices Assistive Device Gait Belt,Front Wheeled Walker Orthotic/Prosthetic Devices or Brace: No Gait Deviations General Gait Pattern Decreased Stride Length, Decreased Feet Clearance,Step- to Gait Factors Limiting Gait Function Factors Limiting Gait Function Decreased Activity Tolerance, Decreased Strength,Difficulty Following Directions,Limited Range of Motion,Pain,Poor Balance,Poor Safety Awareness M5 PT-IP Objective Assessments Start: 03/29/24 14:13 Freq: NEEDED Status: Active Protocol: Document 03/29/24 09:50 AB (Rec: 03/29/24 14:28 AB [id number]) Orientation Orientation/Cognition Level of Alertness Confusional State Orientation Name,Situation Language Function Ability Hard of Hearing Safety Awareness Decreased Safety Awareness Memory Description Short Term Impaired Gross Range of Motion Lower Extremity ROM Assessment Within Functional Limits Strength Lower Extremity Strength Assessment Bilaterally Impaired Hip 3-/5 Knee 3+/5 Sensation Assessment Sensation Gross Sensation WNL Muscle Tone Muscle Tone WNL Yes M6 PT-IP Treatment Start: 03/29/24 14:13 Freq: NEEDED Status: Active Protocol: Document 03/30/24 13:15 AB (Rec: 03/30/24 14:53 AB [id number]) Physical Therapy Treatment Education Education Provided Safety M7 PT-IP Assessment and Plan Start: 03/29/24 14:13 Freq: NEEDED Status: Active Protocol: Document 03/30/24 13:15 AB (Rec: 03/30/24 14:53 AB [id number]) PT Summary Assessment and Plan Potential Rehabilitation Potential Fair Summary Impairments Pain Progress Towards Goals Slow Progress due to Pain,Slow Progress due to Activity Tolerance,Slow Progress - Other Assessment Summary pt requiring max A for bed mobility and transfers and mod to max A with ambulation using FWW but with (+) B knee buckling in standing requiring max A for steadiness and max cues. pt requiring max cues with all tasks. pt will need SNF rehab to improve overall strength and mobility. Goals Bed Mobility Goal Minimal Assistance Transfer Goal Minimal Assistance,Front Wheeled Walker Gait Goal Minimal Assistance,Front Wheel Walker Gait Distance 100 Other Goals up/down 2 steps 1 rail SBA Days to Meet Goals 5 Frequency of Treatment Frequency Of Treatment Twice a Day Treatment Plan Physical Therapy Treatment Plan Bed Mobility Training,Transfer Training,Gait Training, Therapeutic Exercise,Balance Retraining,Post Op Education, Discharge Planning,Hot or Cold Pack,Neuromuscular Re-ed, Coordination Retraining,Manual Therapy Precautions Lumbar Precautions Log Roll,No Twisting,Limit Bending,Lifting Restriction of 10 lbs,Gait Belt above Incisional Area Recommendations To Nursing Amount of Assist Needed 2 Person Assist Discharge Recommendations PT Discharge Recommendations SNF Rehab Transportation Needs at Discharge Wheelchair/Cabulance
--- NOTE | 2024-03-30 14:14 | OT.IP.TRT ---
Current Diagnoses Spondylolisthesis, lumbar region (03/28/24) Spinal stenosis, lumbar region with neurogenic claudication (03/28/24) Arthrodesis status (03/28/24) Surgery Performed Operation Date: 03/28/24 13:45 Actual Procedures p L4-5 TLIF, L3-4 Hemilaminectomy - Robot - Martir Vanegas MD Occupational Therapy Treatment Note M2 OT-IP Current Condition Start: 03/29/24 14:07 Freq: Status: Active Protocol: Document 03/29/24 14:11 [facility] (Rec: 03/29/24 14:24 [facility] [id number]) Occupational Therapy Current Condition Current Condition Evaluation Date 03/29/24 Treatment Diagnosis S/P L4-5 TLIF, L3-4 hemilaminectomy Diagnosis Onset Date 03/28/24 Post Operative Precautions Lumbar Precautions Log Roll,No Twisting,Limit Bending,Lifting Restriction of 10 lbs,Gait Belt above Incisional Area M3 OT- IP Subjective and Pain Start: 03/29/24 14:07 Freq: Status: Active Protocol: Document 03/30/24 14:23 [facility] (Rec: 03/30/24 14:32 [facility] [id number]) OT- Subjective Occupational Therapy Visit Type Type Treatment Note Visit Start Time 14:10 Visit Stop Time 14:24 Occupational Therapy Visit Comments Patient Comments Pt in the room and eating crackers and having a drink from a cup. Patient/Caregiver Goals TO get better. OT Pain Assessment Pain When Pain Assessed At Rest Pain Present Pain Present Denied Pain M4 OT- IP ADL's Start: 03/29/24 14:07 Freq: Status: Active Protocol: Document 03/30/24 14:23 [facility] (Rec: 03/30/24 14:32 [facility] [id number]) OT [id number] Comments OT Self-Feeding Comments Pt having difficulty to hold onto the cup and intermittently loosens her right records management analyst so the cup starts to fall and then able to re- grasp the cup with her right hand. M5 OT- IP IADL's Start: 03/29/24 14:07 Freq: Status: Active Protocol: Document 03/29/24 14:11 [facility] (Rec: 03/29/24 14:24 [facility] [id number]) OT-Instrumental Activities of Daily Living Deficits IADL Deficits Identified Deficits Home Safety Awareness Awareness of Need for Assistance at Home Good Awareness Home Safety Comments Pt very groggy and drowsy at this time. Medication Management Medication Management Comments At this time pt would need assist. Money Management Money Management Comments At this time pt would need assist. Meal Preparation Meal Preparation Comments At this time pt would need assist. Film Waxer Film Waxer Comments At this time pt would need assist. M6 OT- IP Functional Cognition Start: 03/29/24 14:07 Freq: Status: Active Protocol: Document 03/30/24 14:23 [facility] (Rec: 03/30/24 14:32 [facility] [id number]) Cognitive Factors Limiting Selfcare Function Cognitive Ability Level of Alertness Confusional State,Drowsy Patient Orientation Name,Place,Situation Attention Span Ability Capable of Focused Attention, Unable to Sustain Attention Ability to Follow Commands Able to Follow One Step Commands with Increased Time, Able to Follow One Step Commands with Repetition Cognitive Comments Cognitive Assessment Comments Pt very distracted, groggy and not able to find the egg salad sandwich in front of her . Pt not realizing that she had the O2 tube on her face. Pt feels that she is not doing well and notified nursing of pocketing of food at times , decreased sustained control of RUE>LUE to hold onto the cup, and appears more confused today. M8 OT- IP Objective Assessments Start: 03/29/24 14:07 Freq: Status: Active Protocol: Document 03/30/24 14:23 [facility] (Rec: 03/30/24 14:32 [facility] [id number]) OT Strength Comments Strength Comments Pt not able to follow commands formal MMT. Having difficulty to hold onto the cup for sustained time, before cup dropping but able to re-grasp before falling out of her hand . OT- Coordination Assessment Upper Extremity Finger to Nose Test Bilateral UE Impaired Comments Coordination Comments RUE> LUE M9 OT- IP Assessment and Plan Start: 03/29/24 14:07 Freq: Status: Active Protocol: Document 03/30/24 14:23 [facility] (Rec: 03/30/24 14:32 [facility] [id number]) OT Summary Assessment and Plan Potential Rehabilitation Potential Good Analytic Complexity at Evaluation Moderate Summary OT Impairments Pain,Strength,Balance, Functional Cognition, Functional Mobility,Grooming, Dressing,Toileting,Bathing, Toilet Transfers,Shower Transfers,Activity Tolerance Progress Towards Goals Slow Progress due to Pain,Slow Progress due to Medical Issues,Slow Progress due to Activity Tolerance Assessment Summary Pt increased groggy, distracted, noted some pocketing with her food, and having difficulty to sustain her records management analyst to hold onto a cup today. Pt on 2.5L of O2 and at 94%. Nursing notified on concerns. Pt to go to skilled rehab when medically stable. Goals Self-Feeding Goal Independent Grooming Goal Independent Dressing Goal Independent,Long Handled Shoe Horn,Custodial Officer,Sock Aid Toileting Goal Independent,Toilet Paper Aid Bathing Goal Minimal Assistance Toilet Transfer Goal Independent Shower Transfer Goal Standby Assistance Days to Meet Goals 25 Frequency of Treatment Other frequency 5x/week Treatment Plan OT Treatment Plan ADL Training,Functional Cognition Training,Functional Mobility,Patient/Family Education,Discharge Planning Discharge Recommendations OT Discharge Recommendations SNF Rehab Transportation Needs at Discharge Wheelchair/Cabulance
--- NOTE | 2024-03-30 15:17 | PC.NURSE ---
Pt reporting muscle spasms and having pain. Tremulous Pt-> Why am I shaking all the time? Rating her pain at 10/10. YOLY Gorman is aware. Pt received a dose of steroids. About 45 mins later she became very disoriented. Told her friend Romina she wanted to talk with Romina, she did not recognize her. She thought the year was 1926. She is only oriented to self and had been oriented this am. She did not recognize this nurse. She isnt sure where she is but she does remember having surgery and being in a lot of pain. Her pain is better. She is talking to her spouse who isnt alive anymore. She saw a cat walking around in her room. YOLY Gorman made aware of disorientation and hallucinations. See her orders. Pt assisted back to bed. after a time became suspicious and paranoid. Pt-> Whats going on here, don't touch me. Leave me alone. Warm blankets were placed and pt was allowed to sleep. Initially refusing the second dose of steroids during this time of suspiciousness. She awoke and is more oriented now. Did take the second dose of steroids. However now PT is reporting patient is more unsteady. She denies any pain at all at this time. She is sitting in the chair and eating a little lunch. She knows she is in the hospital, the year is 2023, surgery, mixed up on time still and day/date, but mental status is much improved. Will continue to assess pt status.
[2024-03-30 20:00] VITALS: BP 119/48; PULSE 88; RESP 18; TEMP 36.9; O2SAT 95
[2024-03-30] MEDS: OXYCODONE IR 5 MG TABLET PO (20:35)
[2024-03-30] MEDS: SENNOSIDES 8.6 MG TABLET 17.2 MG PO (20:36)
[2024-03-30] MEDS: ATORVASTATIN 20 MG TABLET PO (20:36)
[2024-03-31] MEDS: DEXAMETHASONE 4 MG/ML VIAL IV ×3 (00:30→11:05)
[2024-03-31] MEDS: LEVOTHYROXINE 75 MCG TABLET PO (06:05)
[2024-03-31] MEDS: PANTOPRAZOLE DR 20 MG TABLET PO (06:05)
[2024-03-31 06:20] VITALS: O2SAT 95
--- NOTE | 2024-03-31 07:40 | PM.DS.1 ---
History of Present Illness History of Present Illness Date Patient Seen: 03/31/24 Time Patient Seen: 07:41 Chief complaint: Translam Intrbody Fus./Laminotomy -Robot Narrative: Pain is mild this morning. Denies fever chills. No nausea or vomiting. Patient has assistance at home. Discharge Providers Provider Date of admission: 03/28/24 11:48 Discharge Date: 03/31/24 Primary care physician: Penelope Sheth PA-C Consults: 03/28/24 17:53 Consult to Occupational Therapy Evaluate & Treat Comment: Physician Instructions: Evaluate and treat Consult to Physical Therapy Evaluate & Treat Comment: Physician Instructions: Evaluate and Treat Discharge provider: Vignesh Kelly PA-C Summary Hospital Course Discharge Diagnosis: 1. L4-5 spondylolisthesis 2. L3-4, L4-5 spinal stenosis with neurogenic claudication Hallucinations likely due to medications patient is on cyclobenzaprine and gabapentin she was also receiving oxycodone as needed pain, resolved Hospital Course: 1. L4-5 Postero-lateral and posterior interbody fusion 2. L4-5 interbody cage placement. 3. L4-5 decompressive laminectomy with bilateral facetecomies 4. L4-5 Posterior non-segmental instrumentation 5. L3-4 hemilaminectomy 6. Donnelly of bone marrow from iliac crest 7. Utilization of microsurgical technique and operating microscope Same procedure as scheduled: Yes Indications: Patient has been having chronic back pain and worsening lumbar radiculopathy and symptoms of neurogenic claudication. She has L4-5 spondylolisthesis along with spinal stenosis at L3-4 and L4-5 correlating with her symptoms. Patient failed multiple conservative management with worsening pain weakness and numbness in her lower extremity. Patient has been having difficulty performing activity of daily living. After discussing risks benefits of treatment options, patient elected proceed with surgery. Surgeon: Martir Vanegas Wood Crew Supervisor: Amalia Gorman Click Yes if Unassisted: No Anesthesia Type: General Operative Notes Closure Type: primary Prosthetic devices, grafts, tissues, transplants, or devices: Globus CREO MIS screws, Rise cage Estimated Blood Loss (mL): 100 Patient admitted for the above-mentioned procedure. Patient consents to same. Patient underwent lumbar fusion on March 28, 2024. Patient has been slow to mobilize due to pain control. Yesterday patient had issues with hallucinations likely due to over medicating. Patient is back to baseline today. She does have assistance at home. She will mobilize with physical therapy this morning. She will discharge home today after physical therapy if safe for home environment. Exam Vital Signs (past 8 hours): - 03/31/24 06:20 Pulse Oximetry 95 Oxygen Flow Rate 0 Fraction of Inspired Oxygen 28 SaO2/FiO2 Ratio 332 Oxygen Delivery Method Nasal Cannula Oxygen Flow Rate 0 PFSH Medical History Limb alert care status History of high cholesterol History of left breast cancer Sciatica Depression Hypothyroid Ankle fracture Surgical History (Updated 03/30/24 @ 07:23 by Amalia Gorman PA-C) History of D&C History of left knee replacement Status post surgery (04/04/16) History of cataract removal with insertion of prosthetic lens Status post arthroscopy Status post breast lumpectomy Status post appendectomy Status post tonsillectomy and adenoidectomy Social History household members: none Smoking Status: Former smoker alcohol intake: current Discharge Assessment & Plan Assessment and Plan Assessment: Status post L4-L5 fusion, L3-L4 hemilaminectomy Hallucinations, resolved Plan of Treatment: Mobilize with physical therapy, limit bending, twisting, lifting Multimodal pain management Keep dressing clean and dry Discharge home today after physical therapy if safe for home environment. Discharge Plan Discharge orders & Medications Discharge Orders: Discharge (Order); Ordered 03/31/24 Ordered By: Vignesh Kelly Prescriptions: New tramadol 50 mg Tablet 50 mg PO Q6H PRN (Reason: pain) Qty: 30 0RF Continued simvastatin 40 mg tablet 40 mg PO DAILY levothyroxine 75 mcg tablet 75 mcg PO DAILY gabapentin 300 mg capsule 600 mg PO 4XD PRN (Reason: neuropathic pain) omeprazole 20 mg capsule,delayed release(DR/EC) 20 mg PO DAILY escitalopram oxalate 20 mg tablet 20 mg PO DAILY cyclobenzaprine 5 mg tablet 5 mg PO BID acetaminophen [Tylenol 8 Hour] 650 mg Tablet Extended Release 650 mg PO Q8H PRN (Reason: Pain (Scale Score 4-6)) docusate sodium [Colace] 100 mg Capsule 100 mg PO PRN PRN (Reason: Constipation) Discontinued tramadol 50 mg tablet 50 - 100 mg PO Q6H PRN (Reason: pain) Follow up/Referrals: Martir Vanegas MD [Physician] - 04/14/24 9:00 am (Follow up w/ Amalia Gorman PA-C, at [facility] in [place].) Penelope Sheth PA-C [Primary Care Provider] - Diet/Activity/Treatments Diet: Diet as Tolerated Activity: No deep bending or twisting at the waist. No lifting more than 10 pounds. Skin/Wound/Dressing Care Report to your healthcare provider any signs of infection, such as:: chills, fever, night sweats, unusual drainage and unusual redness Dressing: May shower. Keep dressings as dry as possible. If dressing becomes wet or dirty, may remove and replace with clean, dry gauze. No bathing or otherwise soaking incisions. Do not apply any creams, lotions, or ointments to incisions. Visit Report/Discharge Packet Instructions: DI for Constipation, How to Prevent Falls, DI for Prescription Opioid Use, DI for Transforaminal Lumbar Interbody Fusion Stand Alone Forms: Patient Portal/API, Stroke Signs & Symptoms, Surgery Discharge Discharge Data Primary Care Provider: Penelope Sheth [facility]TE Deep Vein Thrombosis/Pulmonary Embolism Present on Admission: No
[2024-03-31 08:00] VITALS: BP 124/59; PULSE 83; RESP 14; TEMP 35.9; O2SAT 93
[2024-03-31] MEDS: DOCUSATE 100 MG CAPSULE PO (08:57)
[2024-03-31] MEDS: ESCITALOPRAM 10 MG TABLET 20 MG PO (08:57)
[2024-03-31] MEDS: SODIUM CHLORIDE 0.9% FLUSH 10 ML IV (08:58)
--- NOTE | 2024-03-31 09:13 | PT.IPTN ---
Current Diagnoses Spondylolisthesis, lumbar region (03/28/24) Spinal stenosis, lumbar region with neurogenic claudication (03/28/24) Arthrodesis status (03/28/24) Surgery Performed Operation Date: 03/28/24 13:45 Actual Procedures p L4-5 TLIF, L3-4 Hemilaminectomy - Robot - Martir Vanegas MD Physical Therapy Treatment Note M2 PT-IP Current Condition Start: 03/29/24 14:13 Freq: NEEDED Status: Active Protocol: Document 03/29/24 09:50 AB (Rec: 03/29/24 14:28 AB [id number]) Physical Therapy Current Condition Current Condition Evaluation Date 03/29/24 Treatment Diagnosis s/p L4-5 TLIF, L3-4 hemilami; difficulty in walking Onset Date 03/28/24 M3 PT-IP Subjective Start: 03/29/24 14:13 Freq: NEEDED Status: Active Protocol: Document 03/31/24 09:34 TS (Rec: 03/31/24 09:45 TS [id number]) Subjective Physical Therapy Visit Type Type Treatment Note Visit Start Time 09:13 Visit Stop Time 09:33 Number of ARRESTING GEAR OPERATOR Visits 1 Physical Therapy Visit Comments Patient Comments Pt found resting in the chair, reports feeling much better today, she is agreeable to PT. M4 PT-IP Mobility and Gait Start: 03/29/24 14:13 Freq: NEEDED Status: Active Protocol: Document 03/31/24 09:34 TS (Rec: 03/31/24 09:45 TS [id number]) PT-Bed Mobility Assessment Supine to Sit Supine to Sit Standby Assistance Sit to Supine Sit to Supine Contact Guard Assistance,1 Person Assistance,Head of Bed Elevated Scooting Scooting to Edge of Bed Standby Assistance PT-Transfer Assessment Sit to and From Stand Sit to and from Stand Standby Assistance Equipment Transfer Assistive Device Gait Belt,Front Wheeled Walker Orthotic/Prosthetic Devices or Brace: No Comments Mobility Comments Friedn dons belt prior to standing. STS with FWW SBA, pt has good balance. She ambulated ~175'SBA with step thru gait and use of FWW. She performs stairs x3 with B single rail and [employer] from her friend CGA. She ambulates back to room. She performs bed mobiltiy SBA/CGA with good awareness of her back precautions. Pt was left in the chair. Gait Assessment Gait Gait Assistance Required: Standby Assistance Distance (Feet) 175 Able to Maintain Weight Bearing Status Yes During Gait Assistive Devices Assistive Device Gait Belt,Front Wheeled Walker Orthotic/Prosthetic Devices or Brace: No Gait Deviations General Gait Pattern Decreased Stride Length, Decreased Feet Clearance,Step- to Gait Factors Limiting Gait Function Factors Limiting Gait Function Decreased Activity Tolerance, Decreased Strength,Difficulty Following Directions,Limited Range of Motion,Pain,Poor Balance,Poor Safety Awareness Stair Climbing Assessment Evaluation Level of Assist On Stairs Standby Assistance Devices Stair Climbing Assistive Devices Right Railing Technique/Endurance Stair Climbing Direction Ascend and Descend Stair Climbing Technique Step Over Step Number of Steps Climbed 3 PT-Balance Assessment Sitting Balance and Reactions Static Sitting Balance Ability Good Dynamic Sitting Balance Ability Good Standing Balance and Reactions Static Standing Balance Ability Good Dynamic Standing Balance Ability Good Device Used FWW M5 PT-IP Objective Assessments Start: 03/29/24 14:13 Freq: NEEDED Status: Active Protocol: Document 03/29/24 09:50 AB (Rec: 03/29/24 14:28 AB [id number]) Orientation Orientation/Cognition Level of Alertness Confusional State Orientation Name,Situation Language Function Ability Hard of Hearing Safety Awareness Decreased Safety Awareness Memory Description Short Term Impaired Gross Range of Motion Lower Extremity ROM Assessment Within Functional Limits Strength Lower Extremity Strength Assessment Bilaterally Impaired Hip 3-/5 Knee 3+/5 Sensation Assessment Sensation Gross Sensation WNL Muscle Tone Muscle Tone WNL Yes M6 PT-IP Treatment Start: 03/29/24 14:13 Freq: NEEDED Status: Active Protocol: Document 03/31/24 09:34 TS (Rec: 03/31/24 09:45 TS [id number]) Physical Therapy Treatment Education Education Provided Safety M7 PT-IP Assessment and Plan Start: 03/29/24 14:13 Freq: NEEDED Status: Active Protocol: Document 03/31/24 09:34 TS (Rec: 03/31/24 09:45 TS [id number]) PT Summary Assessment and Plan Potential Rehabilitation Potential Fair Summary Impairments Pain Progress Towards Goals Progressing Toward Goals Assessment Summary Jyothi is making good progress with her mobility. She performs bed mobility SBA with good awareness of precautions . She progressed her gait to ~ 175' with good balance. She performs stairs CGA. Friend was instructed in and performed stairs, gait and bed training. Goals Bed Mobility Goal Minimal Assistance Transfer Goal Minimal Assistance,Front Wheeled Walker Gait Goal Minimal Assistance,Front Wheel Walker Gait Distance 100 Other Goals up/down 2 steps 1 rail SBA Days to Meet Goals 5 Frequency of Treatment Frequency Of Treatment Twice a Day Treatment Plan Physical Therapy Treatment Plan Bed Mobility Training,Transfer Training,Gait Training, Therapeutic Exercise,Balance Retraining,Post Op Education, Discharge Planning,Hot or Cold Pack,Neuromuscular Re-ed, Coordination Retraining,Manual Therapy Precautions Lumbar Precautions Log Roll,No Twisting,Limit Bending,Lifting Restriction of 10 lbs,Gait Belt above Incisional Area Recommendations To Nursing Amount of Assist Needed Standby Assistance Discharge Recommendations PT Discharge Recommendations Home with Assistance Transportation Needs at Discharge Private Vehicle
--- NOTE | 2024-03-31 10:42 | CM.DPC ---
DCP Cont. Reviewed EMR and team rounds for status updates. Pt has been able to work with PT, and has improved enough that she is now going home, rather than SNF rehab. Family will provide for care assistance. Per pt/family, sent referral and orders to their preference, [facility], for OP f/u. No further needs are indicated from CM at this time.
--- NOTE | 2024-03-31 11:17 | OT.IP.TRT ---
Current Diagnoses Spondylolisthesis, lumbar region (03/28/24) Spinal stenosis, lumbar region with neurogenic claudication (03/28/24) Arthrodesis status (03/28/24) Surgery Performed Operation Date: 03/28/24 13:45 Actual Procedures p L4-5 TLIF, L3-4 Hemilaminectomy - Robot - Martir Vanegas MD Occupational Therapy Treatment Note M2 OT-IP Current Condition Start: 03/29/24 14:07 Freq: Status: Active Protocol: Document 03/29/24 14:11 [facility] (Rec: 03/29/24 14:24 [facility] [id number]) Occupational Therapy Current Condition Current Condition Evaluation Date 03/29/24 Treatment Diagnosis S/P L4-5 TLIF, L3-4 hemilaminectomy Diagnosis Onset Date 03/28/24 Post Operative Precautions Lumbar Precautions Log Roll,No Twisting,Limit Bending,Lifting Restriction of 10 lbs,Gait Belt above Incisional Area M3 OT- IP Subjective and Pain Start: 03/29/24 14:07 Freq: Status: Active Protocol: Document 03/31/24 11:05 [facility] (Rec: 03/31/24 11:17 [facility] [id number]) OT- Subjective Occupational Therapy Visit Type Visit Start Time 09:30 Visit Stop Time 10:23 Occupational Therapy Visit Comments Patient Comments Pt doing better and wanting to shower and her sister in law there for caregiver training. Patient/Caregiver Goals To go home. OT Pain Assessment Pain When Pain Assessed At Rest Pain Present Pain Present Denied Pain M4 OT- IP ADL's Start: 03/29/24 14:07 Freq: Status: Active Protocol: Document 03/31/24 11:05 [facility] (Rec: 03/31/24 11:17 [facility] [id number]) OT [id number] Comments OT Self-Feeding Comments Not performed, pt states had no issues today. OT ADL-Grooming Comments OT Grooming Comments Not performed. OT ADL-Oral Care Comments Oral Care Comments Not performed. OT ADL-Dressing General Eval Upper Body Dressing Ability Independent Lower Body Dressing Ability Maximum Assistance Areas Needing Assistance Pants/Shorts,Socks,Shoes Comments OT Dressing Comments Able to practice with paper sheeter and sock aid to assist with LB dressing needs. OT ADL-Toileting Comments OT Toileting Comments Pt may benefit from toilet paper aid. OT ADL-Bathing Bathing Type Bathing Type Shower General Evaluation Bathing Ability Moderate Assistance Areas Needing Assistance Wash/Dry Back,Wash/Dry Lower Extremities Comments OT Bathing Comments Pt will benefit from a shower chair and assist. Educated to cover the dressing for showering needs. M5 OT- IP IADL's Start: 03/29/24 14:07 Freq: Status: Active Protocol: Document 03/29/24 14:11 [facility] (Rec: 03/29/24 14:24 [facility] [id number]) OT-Instrumental Activities of Daily Living Deficits IADL Deficits Identified Deficits Home Safety Awareness Awareness of Need for Assistance at Home Good Awareness Home Safety Comments Pt very groggy and drowsy at this time. Medication Management Medication Management Comments At this time pt would need assist. Money Management Money Management Comments At this time pt would need assist. Meal Preparation Meal Preparation Comments At this time pt would need assist. Mc Kay Stitcher Mc Kay Stitcher Comments At this time pt would need assist. M6 OT- IP Functional Cognition Start: 03/29/24 14:07 Freq: Status: Active Protocol: Document 03/31/24 11:05 [facility] (Rec: 03/31/24 11:17 [facility] [id number]) Cognitive Factors Limiting Selfcare Function Cognitive Ability Level of Alertness Alert Patient Orientation Name,Place,Situation Attention Span Ability Capable of Focused Attention, Capable of Sustained Attention Ability to Follow Commands Able to Follow One Step Commands Safety Awareness Decreased Ability to Apply Precautions Cognitive Comments Cognitive Assessment Comments Pt is a little impulsive and needing cues to follow her back precautions and slow down . Pt still a little forgetful and will need assist for safety awareness and assist for needs. M7 OT- IP Mobility and Balance Start: 03/29/24 14:07 Freq: Status: Active Protocol: Document 03/31/24 11:05 [facility] (Rec: 03/31/24 11:17 [facility] [id number]) OT-Transfer Assessment Sit to and From Stand Sit to and from Stand Contact Guard Assistance Transfers Transfer Ability Contact Guard Assistance Technique Transfer Destination Chair,Shower Stall,Toilet Transfer Technique Stand Step Pivot Devices Transfer Assistive Devices Front Wheeled Walker Comments Mobility Comments Close SBA to CGA with the fww and while stepping over threshold of the shower. OT- Balance Assessment Sitting Balance and Reactions Static Sitting Balance Ability Normal Dynamic Sitting Balance Ability Good Standing Balance and Reactions Static Standing Balance Ability Good Dynamic Standing Balance Ability Fair M9 OT- IP Assessment and Plan Start: 03/29/24 14:07 Freq: Status: Active Protocol: Document 03/31/24 11:05 [facility] (Rec: 03/31/24 11:17 [facility] [id number]) OT Summary Assessment and Plan Potential Rehabilitation Potential Good Analytic Complexity at Evaluation Low Summary Progress Towards Goals Progressing Toward Goals Assessment Summary Pt much improved today and thinking and moving much better and know wanting to go home with home health and assist. Pt to get BSC/shower chair, sock aid and possibly toilet paper aid. Goals Self-Feeding Goal Independent Grooming Goal Independent Dressing Goal Independent,Long Handled Shoe Horn,General Passenger Agent,Sock Aid Toileting Goal Independent,Toilet Paper Aid Bathing Goal Minimal Assistance Toilet Transfer Goal Independent Shower Transfer Goal Standby Assistance Days to Meet Goals 5 Treatment Plan OT Treatment Plan ADL Training,Functional Cognition Training,Functional Mobility,Patient/Family Education,Discharge Planning Discharge Recommendations OT Discharge Recommendations Home with 02/02 Assist Available,Home Health Transportation Needs at Discharge Private Vehicle
--- NOTE | 2024-03-31 12:21 | PC.NURSE ---
Patient is dressed and ready for d/c home. Patient showered and dressing to back was changed. Patient was cleared to go home by PT and OT. IV removed. Reviewed d/c instructions with patient and family. Pharmacy went to discuss d/c meds with Patient. Reviewed stroke education, back precautions, showering, s/s of infection, no driving while on narcotics, drink plenty of fluids to prevent dehydration, and follow up as scheduled. Patient taken out unit via w/c escorted by PROBATE CLERK and family member with all belongings.
== END 2024-03-31 12:26 | disposition home health service (06) | DRG 453 ==
PROVIDERS: Admitting Provider Orthopaedic Surgery Orthopaedic Surgery of the Spine; PCP Physician Assistant Medical; Referring Provider Orthopaedic Surgery Orthopaedic Surgery of the Spine; Visit Provider Orthopaedic Surgery Orthopaedic Surgery of the Spine
PROC: 0SG00AJ Fusion of Lumbar Vertebral Joint with Interbody Fusion Device, Posterior Approach, Anterior Column, Open Approach (ICD-10-PCS; principal; 2024-03-28 13:45)
DX: M43.16 Spondylolisthesis, lumbar region (principal); G92.8 Other toxic encephalopathy; M48.062 Spinal stenosis, lumbar region with neurogenic claudication; M54.16 Radiculopathy, lumbar region; E03.9 Hypothyroidism, unspecified; F32.A Depression, unspecified; E78.5 Hyperlipidemia, unspecified; K21.9 Gastro-esophageal reflux disease without esophagitis; T42.6X5A Adverse effect of other antiepileptic and sedative-hypnotic drugs, initial encounter; T48.1X5A Adverse effect of skeletal muscle relaxants [neuromuscular blocking agents], initial encounter; T40.2X5A Adverse effect of other opioids, initial encounter; Z87.891 Personal history of nicotine dependence
CPT/HCPCS: 72100; 76000; 94760; 97162; 97166; 97530; 97535; C1713; C9290; J0136; J0171; J0690; J1100; J1170; J2405; J2704; J3010